=== PATIENT | female | born 1960 | race Caucasian/White ===

== ENCOUNTER 2017-11-22 10:33 | Outpatient (CLI) | payer OTHER | END 2017-11-22 10:34 | disposition home or self-care (01) | LOC: BICMAMMO 10:33 | PROVIDERS: ATTEND Family Medicine | DX: Z12.31 Encounter for screening mammogram for malignant neoplasm of breast (principal); R92.1 Mammographic calcification found on diagnostic imaging of breast; Z80.3 Family history of malignant neoplasm of breast | CPT/HCPCS: 77063; 77067 ==